=== PATIENT | male | born 1945 | race Caucasian/White ===

== ENCOUNTER → 2023-06-05 | Outpatient (CLI) | payer MEDICARE, OTHER ==
[~2023-06-05] MED LIST: ANTIFUNGAL CREA14 GM TOP; Aspir 8181 MG PO; CALCIT950 PO; CHOL10002 PO; DOCU100 PO; ENOX100I SC; FISH1000 PO; GLUCOSAMINE-CH1 EA11 PO; HYDACE10B PO; HYDPAM50 PO; IBUP800 PO; LATA.005SO BOTHEYES; LOSA25 PO; METO25 PO; Prilosec20 MG PO; Theratrum Comp1 EACH PO; WARF5 PO
== END ==
LOC: LAB SHORT 11:47 → PLD 11:47
DX: L57.0 Actinic keratosis (principal); B07.8 Other viral warts
CPT/HCPCS: 88305

== ENCOUNTER 2024-09-22 13:04 | Day surgery (SDC) | payer OTHER ==
[~2024-09-22] VITALS: Ht 175.3 cm; Wt 96.3 kg
[~2024-09-22 13:04] MED LIST changes: +ALLER CLEAR; +ATOR10 PO; +Balanced Salt Epinephrine Irrigation Solution 500 mL IR SCH; +COSOPT EYE DROP10 ML; +DULO30 PO; +ERGO400; +FISH OIL; +FISH OIL 1,0001 EA10; +GABA300 PO; +GLUCOSAMINE; +LATANOPROST2.5 M3; +Lidocaine HCl/Pf 1% 5 ML VIAL XX SCH; +MULTI-VITAMIN1 EAC2; +Metoprolol Tart25 MG PO; +PHENYLEPHRINE\\TROPICAMIDE\\TETRACAINE OPHTHALMIC DILATING SOLN LEFTEYE PRN; +Povidone-Iodine 450 DROP/30 ML Solution LEFTEYE SCH; +Povidone-Iodine 450 DROP/30 ML Solution ONE; +Tetracaine HCl/Pf 0.5% Opth Soln 4 ml ONE
[2024-09-22] MEDS ORDERED: FentaNYL Citrate 50 MCG/ML 2 ML Injection ONE (13:13)
[2024-09-22] MEDS ORDERED: Midazolam HCl 1MG / ML 2ML Vial ONE (13:13)
--- NOTE | 2024-09-22 13:34 | NUR ---
09/22/24 1334 Bisi Noriega CALL LIGHT WITHIN REACH. TETRACAINE IN LEFT EYE AT 1327 AND PLEDGETT IN AT 1330
[2024-09-22] MEDS ORDERED: Moxifloxacin HCL 0.5 MG/0.1 ML 0.4MLSYR LEFTEYE ONE (14:00)
[2024-09-22 14:25] VITALS: BP 103/67
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
== END 2024-09-22 14:52 | disposition home or self-care (01) ==
LOC: ORSCSDS 13:04
PROVIDERS: Student in an Organized Health Care Education/Training Program
PROC: 08RK3JZ Replacement of Left Lens with Synthetic Substitute, Percutaneous Approach (ICD-10-PCS; principal; 2024-09-22 14:30)
PROC: 08933ZZ Drainage of Left Anterior Chamber, Percutaneous Approach (ICD-10-PCS; principal; 2024-09-22 14:30)
DX: H25.813 Combined forms of age-related cataract, bilateral (principal); H40.1121 Primary open-angle glaucoma, left eye, mild stage; H52.202 Unspecified astigmatism, left eye; I10 Essential (primary) hypertension; G47.33 Obstructive sleep apnea (adult) (pediatric); Z79.899 Other long term (current) drug therapy
CPT/HCPCS: J2250; J3010; V2632

== ENCOUNTER 2024-09-29 13:01 | Day surgery (SDC) | payer OTHER ==
[~2024-09-29] VITALS: Ht 175.3 cm; Wt 97.2 kg
[~2024-09-29 13:01] MED LIST changes: +Moxifloxacin HCL 0.5 MG/0.1 ML 0.4MLSYR RIGHTEYE SCH; +NS 500 ML IV ONE; -PHENYLEPHRINE\\TROPICAMIDE\\TETRACAINE OPHTHALMIC DILATING SOLN LEFTEYE PRN; +PHENYLEPHRINE\\TROPICAMIDE\\TETRACAINE OPHTHALMIC DILATING SOLN RIGHTEYE PRN; -Povidone-Iodine 450 DROP/30 ML Solution LEFTEYE SCH; +Povidone-Iodine 450 DROP/30 ML Solution RIGHTEYE SCH
[2024-09-29] MEDS ORDERED: NS 1,000 ML IV ONE (13:37)
[2024-09-29] MEDS ORDERED: Midazolam HCl 1MG / ML 2ML Vial ONE (13:51)
[2024-09-29] MEDS ORDERED: FentaNYL Citrate 50 MCG/ML 2 ML Injection ONE (13:51)
[2024-09-29 14:24] VITALS: BP 114/77
== END 2024-09-29 15:04 | disposition home or self-care (01) ==
LOC: ORSCSDS 13:01
PROVIDERS: Student in an Organized Health Care Education/Training Program
PROC: 08923ZZ Drainage of Right Anterior Chamber, Percutaneous Approach (ICD-10-PCS; principal; 2024-09-29 14:30)
PROC: 08RJ3JZ Replacement of Right Lens with Synthetic Substitute, Percutaneous Approach (ICD-10-PCS; principal; 2024-09-29 14:30)
DX: H25.811 Combined forms of age-related cataract, right eye (principal); H25.11 Age-related nuclear cataract, right eye; H52.201 Unspecified astigmatism, right eye; H40.1111 Primary open-angle glaucoma, right eye, mild stage; Z96.1 Presence of intraocular lens; I10 Essential (primary) hypertension; I48.91 Unspecified atrial fibrillation; G47.33 Obstructive sleep apnea (adult) (pediatric); Z79.899 Other long term (current) drug therapy; Z86.718 Personal history of other venous thrombosis and embolism
CPT/HCPCS: J2250; J3010; J7040; V2632